=== PATIENT | female | born 1935 | race Caucasian/White ===

== ENCOUNTER → 2016-12-26 | Outpatient (CLI) | payer MEDICARE ==
[2014-09-11 13:30] VITALS: BP 151/73
[~2016-12-26] MED LIST: ATOR20TA PO; LOSA25TA4 PO
[2016-12-26 08:16] LABS: CALCIUM 8.9 mg/dL (8.5-10.1); CREATININE 0.9 mg/dL (0.6-1.0); GFR 59.8; POTASSIUM 4.4 mmol/L (3.5-5.1)
== END | disposition home or self-care (01) ==
LOC: LAB 07:50
PROVIDERS: ATTEND Internal Medicine Cardiovascular Disease
DX: R07.9 Chest pain, unspecified (principal)
CPT/HCPCS: 36415; 80048; 80061

== ENCOUNTER → 2017-01-03 | Outpatient (CLI) | payer MEDICARE ==
[2014-09-11 13:30] VITALS: BP 151/73
[~2017-01-03] MED LIST changes: +REGADENOSON 0.4 MG/5 ML DISP.SYRIN. IV ONE
--- NOTE | 2017-01-03 09:40 | CARD ---
APPROVED REPORT EXAM: Two-dimensional and M-mode echocardiogram with Doppler, color Doppler with contrast. Other Information Quality : Average Rhythm : NSR INDICATION CVA/TIA Chest Pain Echo Enhancing Agent Indication: Rule Out Septal Defect Agent/Amount Used: Agitated Fhkqcu2gS 2D DIMENSIONS RVDd2.1 (2.9-3.5cm)Left Atrium(2D)2.8 (1.6-4.0cm) IVSd0.9 (0.7-1.1cm)Aortic Root(2D)2.9 (2.0-3.7cm) LVDd4.7 (3.9-5.9cm)LVOT Diameter2.2 (1.8-2.4cm) PWd1.0 (0.7-1.1cm)LVDs3.3 (2.5-4.0cm) FS (%) 29.1 %SV57.9 ml LVEF(%)55.9 (>50%) Aortic Valve AoV Peak Pedro.150.6cm/sAoV VTI31.7cm AO Peak GR.9.1mmHgLVOT Peak Pedro.95.9cm/s LVOT VTI 21.75cmAO Mean GR.5mmHg VINNY (VMAX)2.23rt5FQY (VTI)2.51cm2 AI P 1/2 Aucm111jb Mitral Valve MV E Vaigjias91.5cm/sMV DECEL XJUE009ny MV A Wuhlfdrq253.4cm/sE/A Ratio0.5 MV A Kkcqeuin691ka Tricuspid Valve TR P. Fyhcphzr127yi/sRAP YAWWWDFH4nfOq TR Peak Gr.73joYbKZVA54dsUf Pulmonary Vein S1 Yoofqmte89.7cm/sD2 Ufzxteel61.2cm/s LEFT VENTRICLE The left ventricle is normal size. There is normal left ventricular wall thickness. Left ventricle sy stolic function is normal. The Ejection Fraction is 55-60%. There is normal LV segmental wall motion. Tissue Doppler imaging reveals mild left ventricular diastolic dysfunction. There is no ventricular septal defect visualized. RIGHT VENTRICLE The right ventricle is normal size. The right ventricular systolic function is normal. ATRIA The left atrium size is normal. The right atrium size is normal. Injection of agitated saline contras t demonstrates immediate right to left shunting of mild degree suggestive of a small PFO. AORTIC VALVE The aortic valve is normal in structure. The aortic valve is trileaflet. Doppler and Color Flow revea led trace aortic regurgitation. There is no significant aortic valvular stenosis. MITRAL VALVE Mitral annular calcification is mild. There is no mitral valve stenosis. Doppler and Color Flow revea led mild mitral regurgitation. TRICUSPID VALVE The tricuspid valve is normal in structure. Doppler and Color Flow revealed mild tricuspid regurgitat ion. The PA pressure was estimated at 31 mmHg. There is no tricuspid valve stenosis. PULMONIC VALVE The pulmonic valve is not well visualized. Doppler and Color Flow revealed no pulmonic valvular regur gitation. There is no pulmonic valvular stenosis. GREAT VESSELS The aortic root is normal in size. Normal pulmonary venous flow (Doppler). The IVC is normal in size and collapses >50% with inspiration. PERICARDIAL EFFUSION There is no evidence of significant pericardial effusion. Critical Notification Critical Value: No <Conclusion> Left ventricle systolic function is normal. The Ejection Fraction is 55-60%. There is normal LV segmental wall motion. Injection of agitated saline contrast demonstrates immediate right to left shunting of mild degree rios ggestive of a small PFO. Doppler and Color Flow revealed mild tricuspid regurgitation. The PA pressure was estimated at 31 mmH g.
--- NOTE | 2017-01-03 13:56 | RAD ---
APPROVED REPORT Test Type: Pharmacological Stress Nurse/Tech: SIENNA Wheatley Test Indications: Chest unspecified Cardiac History: none Medications: see EHR Medical History: See EHR Resting ECG: SR PAC Resting Heart Rate: 81 bpm Resting Blood Pressure: 184/88mmHg Pretest Chest Pain: None Nurse/Tech Notes Consent: The procedure was explained to the patient in lay terms. Informed consent was witnessed. Wicho eout was entered into [employer]. History and Stress Test performed by SIENNA Wheatley Pharm. Details Pharmacologic stress testing was performed using 0.4mg per 5ml of regadenoson given intravenously ove r 7-10 seconds. POST EXERCISE Max HR: 109 bpm Max Blood Pressure: 142/67mmHg Blood Pressure response to exercise: Normal blood pressure response during stress. Heart Rate response to exercise: Normal response Chest Pain: No. INTERPRETATION Stress EKG Conclusion: No evidence of ischemia. Imaging Protocol IMAGE PROTOCOL: Rest Tc-99m/stress Tc-99m 1 day Rest: Stress: Viability: Radiopharm.Tc99m PadqqqzsmOs00e Sestamibi Dose11.9mCi 31.3mCi Duration 15min. 10min. Img Date 01/03/2017 01/03/2017 Inj-Img Llbn13goh. 60min. Rest Admin Site:IV - Left AntecubitalAdministrator: SIENNA Wheatley Stress Admin Site: IV - Left AntecubitalAdministrator: SIENNA Wheatley STRESS DATA End Diast. Vol.69.0mlAv. Heart Rate85.0bpm LVEDV index BSA1.0mlCardiac Output0.1L/min End Syst. Vol.13.0mlCO Index BSA4.7L/min LVESV index BSA0.0mlMyocardial Wbny468.0g Eject. Zyztqgyt82.0% Stress Rates Pk. Fill Rate3.16EDV/secLVtime Pk. Fill 137.03msec Pk. Empty Rate3.60ESV/secLVtime Pk. Fztzu956.56msec 08/09 Pk. Fill1.42EDV/sec Stress Scores Regional WT0.00Summed WT0.00 Regional WM0.00Summed WM0.00 The rest and stress images show normal perfusion, normal contraction and thickening. LV Perf. Quant 17 Seg. SSS0.00 17 Seg. SRS1.00 17 Seg. SDS0.00 Stress Defect Extent (% LAD)0.00Rest Defect Extent (% LAD)0.00Rev. Defect Extent (% LAD)0.00 Stress Defect Extent (% LCX) 0.00Rest Defect Extent (% LCX)0.00Rev. Defect Extent (% LCX)0.00 Stress Defect Extent (% RCA)0.00Rest Defect Extent (% RCA)0.00Rev. Defect Extent (% RCA)0.00 Stress Defect Extent (% LEOLA)0.00Rest Defect Extent (% LEOLA)0.00Rev. Defect Extent (% LEOLA)0.00 Other Information Quality:Good Risk Assessment: Low Risk Conclusion 1. No evidence of stress induced EKG changes. 2. Normal perfusion at stress/rest. 3. Low risk study. EF > 70%
== END | disposition home or self-care (01) ==
LOC: ECHO 08:39
PROVIDERS: ATTEND Internal Medicine Cardiovascular Disease
DX: I08.3 Combined rheumatic disorders of mitral, aortic and tricuspid valves (principal); I10 Essential (primary) hypertension; G45.9 Transient cerebral ischemic attack, unspecified; Z79.01 Long term (current) use of anticoagulants
CPT/HCPCS: 78452; 93017; 96374; 96375; 96376; A9500; C8929; J2785

== ENCOUNTER 2017-03-11 17:17 | Emergency (ER) | payer MEDICARE ==
[~2017-03-11] VITALS: Ht 154.9 cm; Wt 63.5 kg
[~2017-03-11 17:17] MED LIST changes: -REGADENOSON 0.4 MG/5 ML DISP.SYRIN. IV ONE
--- NOTE | 2017-03-11 18:18 | EKG ---
[address] [address] Test Date: 2017-03-11 Test Time: 17:55:04 Pat Name: REMBERTO NOLASCO Department: Room: Gender: F Chief Science Officer: ERWIN : 1935 Requested By: EDENILSON BLAIR Order Number: [id number] Reading MD: Measurements Intervals [place] Rate: 86 P: 58 [place]: 168 QRS: -24 QRSD: 82 T: 56 QT: 372 QTc: 448 Interpretive Statements SINUS RHYTHM LEFTWARD AXIS QRS(T) CONTOUR ABNORMALITY CANNOT RULE OUT ANTEROSEPTAL MYOCARDIAL DAMAGE RI6.01 Unconfirmed report No previous ECG available for comparison
--- NOTE | 2017-03-11 18:20 | PHYS DOC ---
Past History Past Medical History: Hypertension, Other Past Surgical History: Other Alcohol Use: None Drug Use: None Adult General Chief Complaint Chief Complaint: WEAKNESS/GENERALIZED HPI HPI Patient is a 81 year old F who presents with lightheaded and dizziness. Patient was seen at [facility] ER for oral dizziness and a headache. Patient was diagnosed with hypertension with blood pressures in the 180s and was given 10 mg of hydralazine. After examination of blood pressure had come down the patient was discharged. Daughter states that when they got in the car the patient had passed out. Once the patient home blood pressures were in the 80s systolic. Patient had multiple episodes of syncope. Daughter called her theater teacher Dr. Nickerson who told her to come the emergency room. In the emergency room patient is asymptomatic with blood pressures in the 120s. Patient was orthostatic negative. Patient has no complaints at this time. Review of Systems Review of Systems GEN: Denies fevers, chills, sweats HEENT: Denies blurred vision, sore throat CV: Denies chest pain RESP: Denies shortness of air, cough GI: Denies n/v/d NEURO: Dizziness MSK: Denies weakness, joint pain/swelling Allergies Allergies Allergies Coded Allergies Type Severity Reaction Last Updated Verified aspirin Allergy Unknown 08/10/14 No lisinopril Allergy Unknown 08/10/14 No Physical Exam Physical Exam GEN.: No apparent distress. Alert and oriented. HEENT: Head is normocephalic, atraumatic NECK: Supple. LUNGS: CTAB. HEART: RRR, S1, S2 present. Peripheral pulses intact ABDOMEN: Soft, nontender. Positive bowel sounds. EXTREMITIES: Without any cyanosis. NEUROLOGIC: Normal speech, normal tone, cranial nerves II-12 are grossly intact without any focal neurologic deficits PSYCHIATRIC: Normal affect, normal mood. SKIN: No ulcerations Current Patient Data Vital Signs Vital Signs Date Time Temp Pulse Resp B/P (MAP) Pulse Ox O2 Delivery O2 Flow Rate FiO2 03/11/17 17:45 98.1 83 16 95 Room Air Lab Results Laboratory Tests Test 03/11/17 18:50 White Blood Count 11.7 x10^3/uL Red Blood Count 4.75 x10^6/uL Hemoglobin 15.6 g/dL Hematocrit 45.8 % Mean Corpuscular Volume 96 fL Mean Corpuscular Hemoglobin 33 pg Mean Corpuscular Hemoglobin Concent 34 g/dL Red Cell Distribution Width 12.6 % Platelet Count 190 x10^3/uL Neutrophils (%) (Auto) 80 % Lymphocytes (%) (Auto) 11 % Monocytes (%) (Auto) 6 % Eosinophils (%) (Auto) 2 % Basophils (%) (Auto) 1 % Neutrophils # (Auto) 9.4 x10^3uL Lymphocytes # (Auto) 1.3 x10^3/uL Monocytes # (Auto) 0.7 x10^3/uL Eosinophils # (Auto) 0.2 x10^3/uL Basophils # (Auto) 0.1 x10^3/uL Sodium Level 142 mmol/L Potassium Level 3.9 mmol/L Chloride Level 106 mmol/L Carbon Dioxide Level 32 mmol/L Anion Gap 4 Blood Urea Nitrogen 15 mg/dL Creatinine 1.0 mg/dL Estimated GFR (Cockcroft-Gault) 53.0 BUN/Creatinine Ratio 15 Glucose Level 119 mg/dL Calcium Level 8.8 mg/dL Total Bilirubin 0.4 mg/dL Aspartate Amino Transf (AST/SGOT) 20 U/L Alanine Aminotransferase (ALT/SGPT) 18 U/L Alkaline Phosphatase 89 U/L Troponin I Quantitative < 0.017 ng/mL Total Protein 7.3 g/dL Albumin 4.1 g/dL Albumin/Globulin Ratio 1.3 EKG EKG 1758: EKG shows normal sinus rhythm rate of 86 no STEMI [] Radiology/Procedures Radiology/Procedures CT scan of the head without contrast NAD [] Course & Med Decision Making Course & Med Decision Making Pertinent Labs and Imaging studies reviewed. (See chart for details) ED course: Patient was seen and examined emergency room CBC, CMP, troponin, CT scan of the head without contrast is ordered 1822: Since records were reviewed from [facility] which showed the patient was treated for hypertension and was given 10 mg of hydralazine and base of blood was ordered however no imaging was ordered. 1841: Patient was reevaluated blood pressures in the 130s over 80s patient is asymptomatic without any complaints. Updated patient and family on plan to obtain a CT scan of the head in addition to repeating some basic blood work and if unremarkable patient and family would like to go home they feel the patient is back to baseline. Patient and family believe that the blood pressure medication given at previous ER was too effective in lowering her blood pressure too much. They believe the symptoms have resolved. 1938: Patient and family are updated on CT scan and lab results, patient was ambulated up and down the [place] in the emergency room without any difficulties. Patient states she feels back to normal when to go home. MDM: After reviewing the chart, CC/HPI/PMH, physical exam, [lab results], [ radiological results], I do not believe the patient has emergent medical condition warranting further workup and/or admission at this time. I believe the patient's symptoms were secondary to receiving hydralazine at the previous emergency room and after a period of time the effect of the hydralazine has worn off and the patient is back to normal. Patient's blood pressures have remained stable in the emergency room. Patient and family are comfortable being discharged home. Additional verbal discharge instructions were provided to the patient and that if symptoms get worse or any new symptoms arise that are worrisome to the patient she is to return to the emergency room immediately [] Dragon Disclaimer Dragon Disclaimer This chart was dictated in whole or in part using Voice Recognition software in a busy, high-work load, and often noisy Emergency Department environment. It may contain unintended and wholly unrecognized errors or omissions. Departure Departure: Impression: Primary Impression: Dizziness Disposition: 01 HOME, SELF-CARE Condition: IMPROVED Referrals: NON,STAFF (PCP) Patient Instructions: Dizziness, [id number] Additional Instructions: Please follow up with your family doctor in the next one to 2 days and return if symptoms increase EDENILSON BLAIR DO Mar 11, 2017 18:20
[2017-03-11 19:14] VITALS: BP 127/64
[2017-03-11 19:16] LABS: BASO # 0.1 x10^3/uL (0.0-0.2); BASO % 1 % (0-3); EOS # 0.2 x10^3/uL (0.0-0.7); EOS % 2 % (0-3); HEMATOCRIT 45.8 % (36.0-47.0); HEMOGLOBIN 15.6 g/dL (12.0-15.5); LYMPH # 1.3 x10^3/uL (1.0-4.8); LYMPH % 11 % (24-48); MEAN CORPUSCULAR HEMOGLOBIN 33 pg (25-35); MEAN CORPUSCULAR HGB CONC 34 g/dL (31-37); MEAN CORPUSCULAR VOLUME 96 fL (79-100); MONO # 0.7 x10^3/uL (0.0-1.1); MONO % 6 % (0-9); NEUT # 9.4 x10^3uL (1.8-7.7); NEUT % 80 % (31-73); PLATELET COUNT 190 x10^3/uL (140-400); RED BLOOD COUNT 4.75 x10^6/uL (3.50-5.40); RED CELL DISTRIBUTION WIDTH 12.6 % (11.5-14.5); WHITE BLOOD COUNT 11.7 x10^3/uL (4.0-11.0)
--- NOTE | 2017-03-11 19:19 | RAD ---
Indication dizziness and headache. Hypertension. Noncontrast images of the head were obtained. Note is made of a previous examination to 12/24/2014 The calvarium appears unremarkable. The visualized paranasal sinuses appear normal. There is no subdural or epidural hematoma. The ventricles and sulci are normal given the patient's age. There is no mass or midline shift. No hemorrhage is seen. No acute intracranial finding is apparent. IMPRESSION: No acute intracranial finding Electronically signed by: Renato Hawthorne MD (03/11/2017 7:15 PM) [facility]
[2017-03-11 19:24] LABS: ALBUMIN 4.1 g/dL (3.4-5.0); ALBUMIN/GLOBULIN RATIO 1.3 (1.0-1.7); CALCIUM 8.8 mg/dL (8.5-10.1); POTASSIUM 3.9 mmol/L (3.5-5.1); TOTAL BILIRUBIN 0.4 mg/dL (0.2-1.0); TOTAL PROTEIN 7.3 g/dL (6.4-8.2)
== END 2017-03-11 19:49 | disposition home or self-care (01) ==
LOC: ER 17:17
DX: R42 Dizziness and giddiness (principal); R51 Headache; R55 Syncope and collapse; I10 Essential (primary) hypertension; Z88.6 Allergy status to analgesic agent; Z88.8 Allergy status to other drugs, medicaments and biological substances
CPT/HCPCS: 36415; 70450; 80053; 84484; 85027; 93005; 99285-25

== ENCOUNTER → 2021-07-06 | Outpatient (CLI) | payer MEDICARE ==
[~2021-07-06] MED LIST changes: +LOSA25TA11 PO; -LOSA25TA4 PO
--- NOTE | 2021-07-06 16:56 | RAD ---
EXAMINATION: XR SACROILIAC JOINTS 3+ VIEWS, XR LUMBAR SPINE 2-3V CLINICAL HISTORY: Back pain TECHNIQUE: XR SACROILIAC JOINTS 3+ VIEWS, XR LUMBAR SPINE 2-3V COMPARISON: None FINDINGS/ IMPRESSION: Normal lumbar lordosis. No evidence of acute fracture or spondylolisthesis. Mild to moderate multilev el degenerative disc disease, greatest at L4-5. Multilevel facet arthropathy, greatest in the lower l umbar spine. SI joints maintained with no evidence of erosions, significant subchondral sclerosis, or ankylosis. Vascular calcifications. Electronically signed by: Dwayne Goodiwn DO (07/06/2021 4:53 PM) [id number]
== END ==
LOC: RAD 12:06
PROVIDERS: ATTEND Family Medicine
DX: M51.36 Other intervertebral disc degeneration, lumbar region (principal); M12.88 Other specific arthropathies, not elsewhere classified, other specified site
CPT/HCPCS: 72100; 72202